=== PATIENT | male | born 1995 | race Caucasian/White ===

== ENCOUNTER 2017-04-24 10:33 | Emergency (ER) | payer BC ==
[~2017-04-24] VITALS: Ht 182.9 cm; Wt 59.0 kg
[2017-04-24] MEDS ORDERED: KETOROLAC TROMETH 60MG/2ML VIAL IM ONE (11:15)
[2017-04-24] MEDS ORDERED: LIDOCAINE 1% HCL (LOCAL ANESTH.) INJ 20ML MDV IJ ONE (11:15)
[2017-04-24] MEDS ORDERED: NEOMYCIN-BACITRACIN-POLYM UNITDOSE PKG TOP OINT TOP ONE (11:15)
[2017-04-24] MEDS ORDERED: SODIUM CHLORIDE 0.9% 1,000 ML IV ONE (12:15)
[2017-04-24] MEDS ORDERED: cefTRIAXone 1GM/50ML D5W 50 ML IV ONE (12:15)
[2017-04-24 13:11] VITALS: BP 127/70
== END 2017-04-24 13:30 | disposition short-term general hospital (02) ==
LOC: EDBD 10:33 → ER 10:33
DX: S02.0XXA Fracture of vault of skull, initial encounter for closed fracture (principal); S02.19XA Other fracture of base of skull, initial encounter for closed fracture; F17.210 Nicotine dependence, cigarettes, uncomplicated; S01.111A Laceration without foreign body of right eyelid and periocular area, initial encounter; V49.49XA Driver injured in collision with other motor vehicles in traffic accident, initial encounter; Y93.89 Activity, other specified; Y99.8 Other external cause status; Y92.410 Unspecified street and highway as the place of occurrence of the external cause
CPT/HCPCS: 12013; 70450; 72125; 73000; 73502; 96365; 96372; 99291; J0696; J1885; J2001; J7030

== ENCOUNTER 2019-06-06 22:29 | Emergency (ER) | payer BC, MEDICAID ==
[~2019-06-06] VITALS: Ht 182.9 cm; Wt 78.6 kg
[2019-06-07 01:20] VITALS: BP 125/86
[2019-06-07] MEDS ORDERED: BACLOFEN 10 MG TAB PO ONE (01:45)
[2019-06-07] MEDS ORDERED: ACETAMINOPHEN/CODEINE#3 (300/30mg) TAB PO ONE (01:45)
== END 2019-06-07 04:31 | disposition home or self-care (01) ==
LOC: ER 22:29
DX: M62.838 Other muscle spasm (principal)
CPT/HCPCS: 71045; 72100; 72125

== ENCOUNTER 2020-05-11 12:53 | Emergency (ER) | payer BC, MEDICAID, OTHER ==
[~2020-05-11] VITALS: Ht 182.9 cm; Wt 81.6 kg
[2020-05-11 13:00] VITALS: BP 136/81
== END 2020-05-11 16:08 | disposition home or self-care (01) ==
LOC: ER 12:53
DX: S02.2XXA Fracture of nasal bones, initial encounter for closed fracture (principal); S01.21XA Laceration without foreign body of nose, initial encounter; R04.0 Epistaxis; F17.200 Nicotine dependence, unspecified, uncomplicated; W22.8XXA Striking against or struck by other objects, initial encounter; Y93.89 Activity, other specified; Y92.89 Other specified places as the place of occurrence of the external cause; Y99.0 Civilian activity done for income or pay
CPT/HCPCS: 70450; 70486

== ENCOUNTER 2021-08-23 17:18 | Emergency (ER) | payer BC, MEDICAID ==
[~2021-08-23] VITALS: Ht 182.9 cm; Wt 81.2 kg
[2021-08-23 17:28] VITALS: BP 135/95
[2021-08-23] MEDS ORDERED: ASPirin 81 mg TAB PO ONE (17:45)
[2021-08-23 19:57] LABS: Basophils # (auto) 0.1 10 ^3/uL (0-0.2); Basophils % (auto) 0.4 % (0.0-2.0); Eosinophils # (auto) 0 10 ^3/uL (0-0.8); Eosinophils % (auto) 0.3 % (0.0-7.0); Hematocrit 46.5 % (41.0-53.0); Hemoglobin 16.5 g/dL (13.5-17.5); Lymphocytes # (auto) 0.4 10 ^3/uL (0.4-5.4); Lymphocytes % (auto) 2.7 % (10.0-50.0); Mean Corpuscular Hemoglobin 30.1 pg (28.0-32.0); Mean Corpuscular Hgb Conc. 35.5 g/dL (32.0-36.0); Mean Corpuscular Volume 84.9 fL (80.0-100.0); Monocytes # (auto) 0.8 10 ^3/uL (0-1.3); Monocytes % (auto) 5.6 % (0.0-12.0); Neutrophils # (auto) 12.3 10 ^3/uL (1.6-8.6); Red Blood Cells 5.48 10^6/uL (4.5-5.90); Red Cell Distribution Width 12.1 % (11.8-14.3); White Blood Cell 13.5 10^3/uL (4.4-10.8)
[2021-08-23 20:14] LABS: Albumin 4.2 g/dL (3.4-5.0); Anion Gap 9 (5-15); Blood Urea Nitrogen 26 mg/dL (7-18); Calcium 8.5 mg/dL (8.5-10.1); Carbon Dioxide 27 mmol/L (21-32); Chloride 108 mmol/L (98-107); Glucose 103 mg/dL (74-106); Magnesium 2.5 mg/dL (1.6-2.6); Potassium 3.8 mmol/L (3.5-5.1); Sodium 144 mmol/L (136-145)
[2021-08-23 20:20] LABS: Alanine Aminotransferase 33 U/L (16-61); Alkaline Phosphatase 52 U/L (45-117); Aspartate Aminotransferase 20 U/L (15-37); Bilirubin, Total 0.5 mg/dL (0.2-1.0); GFR African American 102 mL/min; GFR Non-African American 84 mL/min
[2021-08-23] MEDS ORDERED: ONDANSETRON ODT 4 MG TAB PO ONE (20:45)
== END 2021-08-24 00:06 | disposition left against medical advice (07) ==
LOC: ER 17:18
DX: R07.89 Other chest pain (principal); Z53.29 Procedure and treatment not carried out because of patient's decision for other reasons
CPT/HCPCS: 36415; 71045; 80053; 83735; 84484; 85025; 85379; 93005; 99285; Q0162